=== PATIENT | male | born 1990 | race Caucasian/White ===

== ENCOUNTER 2024-07-24 14:08 | Emergency (ER) | payer BC, SELFPAY ==
[2024-07-24 14:19] VITALS: BP 145/100
--- NOTE | 2024-07-24 15:13 | ED.GENMED ---
History of Present Illness
General
Chief Complaint: DVT/Possible Blood Clot
Source: patient
Time Seen by Provider: 07/24/24 15:04
History of Present Illness
History of Present Illness:
Male with no significant past medical history presenting to the emergency department for evaluation of atraumatic right lower calf pain that started earlier today, thought the pain was mainly just a muscle issue but while at the gym felt that while
he was looking in the mirror thought the right calf area looked bigger than the left and was concerned for possible DVT. Patient decided come to the ER for further evaluation. No risk factors for DVT. No other concerns at present time.
Past History
Past History
ED Past Medical History: None
ED Past Surgical History: None
Social History
Tobacco: Non-smoker
Alcohol: Occasional
Drug: None
Living: with family
Review of Systems
Review of Systems
All Other Systems: ROS reviewed and negative except as documented in HPI and ROS
Phy Exam
Physical Exam
Physical Exam:
GENERAL: Alert , in no apparent distress
EYE: conjunctiva clear
Head: Normocephalic atraumatic
NECK: Supple,
ENT: mmm.
LUNGS: no acute respiratory distress
NEUROLOGICAL: Alert and oriented, ambulates with steady gait
SKIN: Warm and dry, skin intact.
MUSCULOSKELETAL: well perfused. no obvious edema. no erythema or breaks in skin. Easily palpable tibial pulse
PSYCH: Normal and appropriate interaction.
Scores
Heart Failure Risk
Heart Failure Risk Score: Not Applicable
Heart Score for Chest Pain Patients
STEMI patient?: Not applicable
Withdrawal Assessment of Alcohol
Withdrawal Assessment Completed?: Not applicable
Course
Orders/Labs/Results
Orders:
Orders
07/24/24 14:23
Venous Doppler Lwr Ext Rt [US Perip Venous LOWER Ext RT] Urgent
Comment:
Reason For Exam: Pain,swelling
Vital Signs
Initial and Last Documented VS:
Initial Vital Signs
Temp Pulse Resp BP Pulse Ox
98.4 F 70 18 145/100 97
07/24/24 14:19 07/24/24 14:19 07/24/24 14:19 07/24/24 14:19 07/24/24 14:19
Last Documented Vital Signs
Temp Pulse Resp BP Pulse Ox
98.4 F 70 18 145/100 97
07/24/24 14:19 07/24/24 14:19 07/24/24 14:19 07/24/24 14:19 07/24/24 14:19
MDM/Problems Addressed
Differential Diagnosis Includes:
Gastrocnemius muscle strain, soleus muscle strain, DVT, phlebitis
MDM/Problems Addressed:
34-year-old male presenting to the emergency department for evaluation with concern for muscle strain versus DVT. No risk factors for DVT. Ultrasound to rule out DVT ordered from triage. Disposition pending
*Radiology
Radiology exam reviewed: radiology read reviewed
*Pulse Oximetry
Patient hypoxic: no
*Critical Care Note
Total Time (30-74mins, 75-104mins- exclusive of procedures): Not Applicable
Patient Management
Escalation/DeEscalation of care consider admission/obs:
Patient's ultrasound is negative for DVT. Stable for discharge home. Motrin/Tylenol as needed for pain, ice and elevation.
ED Attending Note
-
Portions of this chart may have been created with voice recognition software.� Occasional wrong word or��sound alike� substitutions may have occurred due to the inherent limitations of voice recognition software.
Discharge Plan
Departure
Patient Disposition: Home (Routine Discharge)
Date of Disposition: 07/24/24
Time of Disposition: 15:13
Patient with high blood pressure during this ER visit?: Yes
Discharge Problem:
Pain in right lower leg
Instructions: Lower Extremity Muscle Strain (DC)
Prescriptions:
No Action
Aspirin Low Strength Chewable:
81 mg PO DAILY
Interventions
Interventions:
*Risk Screen - Suicide Last Done: 07/24/24 14:19
*General Assessment Last Done: 07/24/24 14:19
*Neglect/Abuse Screening Last Done: 07/24/24 14:19
Discharge Date and Time
Print Language: SLOV[place]
== END 2024-07-24 15:54 | disposition home or self-care (01) ==
LOC: EMR 14:08
PROVIDERS: EMERGENCY PHYSICIAN Emergency Medicine; FAMILY PHYSICIAN Internal Medicine
DX: M79.661 Pain in right lower leg (principal); M79.89 Other specified soft tissue disorders; R03.0 Elevated blood-pressure reading, without diagnosis of hypertension; Z88.0 Allergy status to penicillin
CPT/HCPCS: 99284; 93971